=== PATIENT | female | born 1985 ===

== ENCOUNTER → 2021-03-14 | Outpatient (REF) | payer OTHER ==
[2021-03-14 18:40] LABS: MALB URINE SIEMENS 89.5 MG/L; MAU/CREAT RATIO 127.8 MCG/MG (0.0-30.0)
== END ==
LOC: M LAB REF 17:14
PROVIDERS: ATTEND Nurse Practitioner Family
DX: E10.649 Type 1 diabetes mellitus with hypoglycemia without coma (principal)

== ENCOUNTER → 2022-03-29 | Outpatient (REF) | payer OTHER ==
[2022-03-29 18:51] LABS: CREATININE, URINE 43.5 MG/DL; MALB URINE SIEMENS 22.4 MG/L; MAU/CREAT RATIO 51.4 MCG/MG (0.0-30.0)
== END ==
LOC: M LAB REF 17:18
PROVIDERS: ATTEND Nurse Practitioner Family
DX: E10.649 Type 1 diabetes mellitus with hypoglycemia without coma (principal)